=== PATIENT | female | born 1940 | race Caucasian/White ===

== ENCOUNTER 2022-10-22 07:15 | Day surgery (SDC) | payer MEDICARE, OTHER ==
[~2022-10-22] VITALS: Ht 139.7 cm; Wt 44.9 kg
[2022-10-22 09:57] VITALS: BP 173/61; PULSE 65; TEMP 97.9
[2022-10-22] MEDS ORDERED: INCRUSE EL62.5 MCG/A IH (10:03)
[2022-10-22] MEDS ORDERED: WIXELA 250-501 EACH IH (10:03)
[2022-10-22] MEDS ORDERED: XANAX 0.5MG0.5 MG PO (10:05)
[2022-10-22] MEDS ORDERED: NYSTATIN (10:06)
[2022-10-22] MEDS ORDERED: VOLTAREN GEL 1%1 TU TP (10:06)
[2022-10-22] MEDS ORDERED: ZANAFLEX2 MG PO (10:07)
[2022-10-22] MEDS ORDERED: NORCO 325 MG-51 TAB PO ×2 (10:08→10:12)
[2022-10-22] MEDS ORDERED: ALL DAY ALLERGY10 M3 PO (10:08)
[2022-10-22] MEDS ORDERED: MUCINEX 60600 MG/TA1 PO (10:09)
[2022-10-22] MEDS ORDERED: TUSSIN PO (10:10)
[2022-10-22] MEDS ORDERED: ALBUTEROL0.83 MG/ML IH (10:10)
[2022-10-22 10:15] VITALS: BP 156/73; PULSE 65; TEMP 97.3
[2022-10-22 10:30] VITALS: BP 158/67; PULSE 56
[2022-10-22 10:45] VITALS: BP 152/52; PULSE 59; TEMP 97.3
[2022-10-22 11:00] VITALS: BP 141/53; PULSE 57
--- NOTE | 2022-10-22 11:54 | NUR ---
0928 PT RETURNED FROM PROCEDURE, ANSWERING QUESTIONS, BREATHING EVEN AND UNLABORED. RECEIVED POST OP REPORT FROM CAT RN, 1010 PT C/O PAIN IN AREA OF BLADDER, STATES IT FEELS LIKE "BLADDER SPASMS." MEDICATED FOR PAIN WITH PRN PAIN MED ORDER. 1030 PT GIVEN CRANBERRY JUICE MIXED WITH SPRITE AT DAUGHTER'S REQUEST. 1037 PT GIVE A WARM BLANKET. TOLERATED PO, BUT WITH C/O NAUSEA. TREATED NAUSEA WITH PRN ZOFRAN ORDER. SX RELIEVED. 1120 DISCHARGE EDUCATION COMPLETED WITH PT AND HER DAUGHTER. QUESTIONS INVITED AND ANSWERED. 125 ML PALE RED COLORED URINE DRAINED FROM [place] BAG PT TO LOBBY VIA WHEEL CHAIRFOR RIDE HOME WITH DAUGHTER IN POV.
[2022-10-22 12:27] VITALS: BP 153/59; PULSE 54; TEMP 97.3
== END 2022-10-22 11:27 | disposition home or self-care (01) ==
LOC: SDCO 07:15
DX: N31.9 Neuromuscular dysfunction of bladder, unspecified (principal); R33.8 Other retention of urine; N30.20 Other chronic cystitis without hematuria; Q60.0 Renal agenesis, unilateral; E66.9 Obesity, unspecified; Z87.891 Personal history of nicotine dependence
CPT/HCPCS: J2405; J2704; J3010; J7120

== ENCOUNTER 2023-07-21 13:38 | Emergency (ER) | payer MEDICARE, OTHER ==
[~2023-07-21] VITALS: Ht 149.9 cm; Wt 45.5 kg
[~2023-07-21 13:38] MED LIST: ALBUTEROL0.83 MG/ML IH; ALL DAY ALLERGY10 M3 PO; INCRUSE EL62.5 MCG/A IH; MUCINEX 60600 MG/TA1 PO; NORCO 325 MG-51 TAB PO; NYSTATIN; TUSSIN PO; VOLTAREN GEL 1%1 TU TP; WIXELA 250-501 EACH IH; XANAX 0.5MG0.5 MG PO; ZANAFLEX2 MG PO
[2023-07-21 13:39] VITALS: TEMP 99
[2023-07-21] MEDS ORDERED: TRELEGY ELLIPT1 EACH IH (14:05)
[2023-07-21] MEDS ORDERED: ZYRTEC 10MG10 MG PO (14:12)
[2023-07-21] MEDS ORDERED: CELEXA10 MG PO (14:28)
[2023-07-21] MEDS ORDERED: ESTRACE0.1 MG/GM VG (14:30)
[2023-07-21] MEDS ORDERED: LASIX 40MG TABL40 MG PO (14:31)
[2023-07-21 14:40] LABS: BASO % 0.3 % (0.0-2.0); GRAN # 13.6 K/mm3 (1.4-6.5); GRAN % 86.3 % (42.2-75.2); HEMATOCRIT 33.7 % (37.0-47.0); HEMOGLOBIN 10.6 g/dl (12.5-16.0); LYMPH % 6.1 % (20.0-51.0); MEAN CELL VOLUME 94 fl (80.0-100.0); MEAN CORPUSCULAR HEMOGLOBIN 30 pg (27-31); MEAN CORPUSCULAR HGB CONC 32 g/dl (33.0-37.0); MEAN PLATELET VOLUME 10.2 fl (7.4-10.4); MONO # 1.1 K/mm3 (0.1-0.6); MONO % 6.8 % (1.7-9.3); PLATELET COUNT 151 K/mm3 (130-400); RED BLOOD COUNT 3.58 M/mm3 (4.10-5.30); REDCELL DISTRIBUTION WIDTH-CV 14.7 % (11.5-14.5)
[2023-07-21 14:43] LABS: COLLECTION METHOD CATHETER
[2023-07-21] MEDS ORDERED: MELATONIN3 M1 (14:47)
[2023-07-21] MEDS ORDERED: REFRESH 1 ML1 ML OP (14:48)
[2023-07-21 14:49] LABS: ALBUMIN 2.9 gm/dL (3.4-4.8); BILIRUBIN,TOTAL 1.8 mg/dL (0.2-1.2); CALCIUM 9.1 mg/dL (8.4-10.2); CREATININE, serum 1.05 mg/dL (0.57-1.11); POTASSIUM 4.1 mmol/L (3.5-4.5); TOTAL PROTEIN 7.1 gm/dL (6.2-8.1)
[2023-07-21] MEDS ORDERED: ULTRAM 50MG TAB50 MG PO (14:49)
[2023-07-21 15:25] LABS: URINE APPEARANCE Cloudy (CLEAR/HAZY); URINE COLOR Yellow (YELLOW)
[2023-07-21 15:26] LABS: BUDDING YEAST Present (NOT PRESENT); SQUAMOUS EPITHELIAL 0-2 /hpf (0-10); URINE BACTERIA Occasional /hpf (NONE SEEN); URINE BLOOD 1+ (NEGATIVE); URINE GLUCOSE Negative (NEGATIVE); URINE KETONE Negative (NEGATIVE); URINE NITRATE Negative (NEGATIVE); URINE PROTEIN(semi-quant) Negative (NEGATIVE); URINE RBC 0-2 /hpf (0-2); URINE UROBILINOGEN 0.2 E.U/dL (0.2-1.0)
[2023-07-21] MEDS ORDERED: LEVAQUIN 5500 MG/TA1 PO (15:31)
[2023-07-21] MEDS ORDERED: LASIX 20MG TABL20 MG PO (15:31)
[2023-07-21] MEDS ORDERED: K-TAB10 PO (15:39)
[2023-07-21 15:45] VITALS: BP 135/57; PULSE 79
== END 2023-07-21 15:45 | disposition home or self-care (01) ==
LOC: COL.ER 13:38
PROVIDERS: Family Medicine; Personal Emergency Response Attendant
DX: I50.9 Heart failure, unspecified (principal); D72.829 Elevated white blood cell count, unspecified; Z99.81 Dependence on supplemental oxygen; Z88.0 Allergy status to penicillin; Z88.1 Allergy status to other antibiotic agents; Z88.2 Allergy status to sulfonamides
CPT/HCPCS: J1940